=== PATIENT | female | born 1980 | race Caucasian/White ===

== ENCOUNTER 2024-07-02 18:25 | Emergency (ER) | payer SELFPAY ==
[2024-07-02] VITALS (10 sets, daily range): BP systolic 108–157; BP diastolic 64–104
[~2024-07-02] VITALS: Ht 149.9 cm; Wt 84.0 kg
[~2024-07-02 18:25] MED LIST: CIPROFLOXACN500 MG PO; METRONIDAZOLE500 MG PO; PERCOCET 5/325M1 TAB PO; PHENERGAN25 MG RE; PROTONIX40 M2 PO; REGLAN10 MG PO
[2024-07-02] MEDS ORDERED: MORPHINE SULFATE 4 MG/ML VIAL IV ONE (18:35)
[2024-07-02] MEDS ORDERED: ONDANSETRON HCl 4 MG/2 ML SDV IV ONE (18:35)
[2024-07-02] MEDS ORDERED: SODIUM CHLORIDE 0.9% 1,000 ML IV ONE (18:40)
[2024-07-02] MEDS ORDERED: Pantoprazole Sodium 40 MG VIAL (Protonix) IV ONE (18:55)
[2024-07-02 18:59] LABS: BASO% 0.1 % (0-3); EOS% 0.1 % (0-8); HEMATOCRIT 43.2 % (37.0-47.0); HEMOGLOBIN 14.5 g/dl (12.0-16.0); IMMATURE GRANULOCYTES 0.6 % (0.0-5.0); LYMPH% 17.1 % (15-41); MEAN CELL VOLUME 87.1 fL CALC (80.0-100.0); MEAN CORPUSCULAR HGB 29.2 pG CALC (26.0-32.0); MEAN CORPUSCULAR HGB CONC 33.6 g/dL CAL (32.0-36.0); NEUT# 14.02 thou/uL (2.00-7.15); NEUT% 77.1 % (42-76); RED BLOOD COUNT 4.96 mill/uL (4.20-5.60); RED CELL DISTRI WIDTH 13.1 % (11.5-15.5)
[2024-07-02 19:12] LABS: ALBUMIN 5.1 g/dL (3.2-5.0); BILIRUBIN, TOTAL 0.6 mg/dL (0.02-1.3); CREATININE 0.5 mg/dL (0.5-1.0); POTASSIUM 3.8 mmol/l (3.5-5.1); TOTAL PROTEIN 8.9 g/dL (6.3-8.2)
[2024-07-02] MEDS ORDERED: PROMETHAZINE HCL 25 MG/ML AMP IV ONE (19:40)
[2024-07-02] MEDS ORDERED: HYDROmorphone HCL 2 MG/AMP IV ONE (19:40)
[2024-07-02] MEDS ORDERED: LACTATED RINGER'S 1,000 ML IV ONE (20:05)
[2024-07-02 21:50] LABS: URINE BILIRUBIN - DIPSTICK Negative (NEGATIVE); URINE BLOOD DIPSTICK Negative (NEGATIVE); URINE COLOR Yellow; URINE GLUCOSE - DIPSTICK Negative (NEGATIVE); URINE KETONE Negative (NEGATIVE); URINE LEUK ESTERASE Negative (NEGATIVE); URINE NITRITE - DIPSTICK Negative (Negative); URINE PH 5.5 (4.5-8.0); URINE PROTEIN - DIPSTICK Negative (NEG-TRACE); URINE UROBILINOGEN - DIPSTICK 0.2 E.U./dL (0.2)
[2024-07-02] MEDS ORDERED: PROTONIX40 M2 PO (21:56)
[2024-07-02] MEDS ORDERED: PROMETHAZINE HY25 M1 PO (21:56)
== END 2024-07-02 22:33 | disposition home or self-care (01) | DRG 391 ==
LOC: ED 18:25
PROVIDERS: Family Medicine
DX: A08.4 Viral intestinal infection, unspecified (principal); K22.6 Gastro-esophageal laceration-hemorrhage syndrome; Z87.442 Personal history of urinary calculi; Z20.822 Contact with and (suspected) exposure to COVID-19
CPT/HCPCS: J2470; Q9967

== ENCOUNTER 2024-08-13 11:44 | Emergency (ER) | payer SELFPAY ==
[~2024-08-13] VITALS: Ht 149.9 cm; Wt 72.5 kg
[2024-08-13] VITALS (11 sets, daily range): BP systolic 120–213; BP diastolic 76–98
[~2024-08-13 11:44] MED LIST changes: +PROMETHAZINE HY25 M1 PO
[2024-08-13] MEDS ORDERED: ONDANSETRON HCl 4 MG/2 ML SDV IV ONE (12:15)
[2024-08-13] MEDS ORDERED: SODIUM CHLORIDE 0.9% 1,000 ML IV ONE (12:15)
[2024-08-13 12:18] LABS: BASO% 0.1 % (0-3); HEMOGLOBIN 14.7 g/dl (12.0-16.0); IMMATURE GRANULOCYTES 0.9 % (0.0-5.0); LYMPH% 8.8 % (15-41); MEAN CELL VOLUME 89.8 fL CALC (80.0-100.0); MEAN CORPUSCULAR HGB CONC 33.4 g/dL CAL (32.0-36.0); MONO% 2.3 % (2-13); NEUT# 13.88 thou/uL (2.00-7.15); NEUT% 87.9 % (42-76); RED BLOOD COUNT 4.9 mill/uL (4.20-5.60); RED CELL DISTRI WIDTH 13.2 % (11.5-15.5)
[2024-08-13] MEDS ORDERED: MORPHINE SULFATE 4 MG/ML VIAL IV ONE (12:30)
[2024-08-13] MEDS ORDERED: HALOPERIDOL LACTATE 5 MG/ML SDV IV ONE (12:30)
[2024-08-13 12:31] LABS: BILIRUBIN, TOTAL 0.5 mg/dL (0.02-1.3); CREATININE 0.5 mg/dL (0.5-1.0); POTASSIUM 3.5 mmol/l (3.5-5.1); TOTAL PROTEIN 8.7 g/dL (6.3-8.2)
[2024-08-13] MEDS ORDERED: FAMOTIDINE 10MG/ML 2ML SDV IV ONE (13:30)
[2024-08-13] MEDS ORDERED: PROMETHAZINE HCL 25 MG/ML AMP IV ONE (13:30)
[2024-08-13] MEDS ORDERED: Pantoprazole Sodium 40 MG VIAL (Protonix) IV ONE (13:30)
[2024-08-13 15:04] LABS: URINE BILIRUBIN - DIPSTICK Negative (NEGATIVE); URINE BLOOD DIPSTICK Negative (NEGATIVE); URINE GLUCOSE - DIPSTICK Negative (NEGATIVE); URINE KETONE 40 mg/dL (NEGATIVE); URINE LEUK ESTERASE Negative (NEGATIVE); URINE NITRITE - DIPSTICK Negative (Negative); URINE PH 6.5 (4.5-8.0); URINE PROTEIN - DIPSTICK Negative (NEG-TRACE); URINE SPECIFIC GRAVITY 1.015; URINE UROBILINOGEN - DIPSTICK 0.2 E.U./dL (0.2)
[2024-08-13 15:06] LABS: URINE COLOR Yellow
[2024-08-13] MEDS ORDERED: PROMETHAZINE HY25 M1 PO (15:31)
[2024-08-13] MEDS ORDERED: DICYCLOMINE HYD10 MG PO (15:31)
[2024-08-13] MEDS ORDERED: PROMETHAZINE HCL 25 MG/ML AMP IM ONE (15:40)
[2024-08-13] MEDS ORDERED: HALOPERIDOL2 MG PO (15:40)
== END 2024-08-13 16:07 | disposition home or self-care (01) | DRG 392 ==
LOC: ED 11:44
PROVIDERS: Family Medicine
DX: R11.2 Nausea with vomiting, unspecified (principal); R10.84 Generalized abdominal pain; Z87.442 Personal history of urinary calculi
CPT/HCPCS: J2470; Q9967